=== PATIENT | male | born 1995 | race Two or more races ===

== ENCOUNTER 2018-11-07 20:07 | Emergency (ER) | payer SELFPAY ==
[~2018-11-07] VITALS: Ht 190.5 cm; Wt 78.0 kg
[2018-11-07] MEDS ORDERED: KETOROLAC 60MG/2ML VIAL IM ONE (21:15)
[2018-11-07] MEDS ORDERED: ETOMIDATE 2MG/ML 10ML VIAL IV ONE (21:45)
[2018-11-07] MEDS ORDERED: ONDANSETRON HCL 4MG/2ML INJ IV ONE (22:00)
[2018-11-07 22:37] VITALS: BP 140/80
== END 2018-11-08 00:11 | disposition home or self-care (01) ==
LOC: ER 20:07
DX: S43.004A Unspecified dislocation of right shoulder joint, initial encounter (principal); W22.8XXA Striking against or struck by other objects, initial encounter; Y93.89 Activity, other specified; Y92.89 Other specified places as the place of occurrence of the external cause; Y99.8 Other external cause status
CPT/HCPCS: 23650; 73030; 96372; 96374; 99152; 99285; J1885; J2405; J3490; Z7610